=== PATIENT | female | born 1970 | race Two or more races ===

== ENCOUNTER 2018-07-28 10:45 | Outpatient (CLI) | payer OTHER ==
[~2018-07-28 10:45] MED LIST: CIPRO500 MG PO; FLAGYL500MG PO; INTESTINEX1 CAP PO; LEVSIN0.125 MG PO; PROTONIX40 MG PO; ZANTAC300 MG PO; ZOFRAN4 MG PO
== END 2018-07-28 11:08 | disposition home or self-care (01) ==
LOC: SONOGRAMA 10:45 → MAMO-SONO 10:45
DX: Z12.31 Encounter for screening mammogram for malignant neoplasm of breast (principal); N64.89 Other specified disorders of breast; E04.1 Nontoxic single thyroid nodule

== ENCOUNTER 2019-04-26 08:26 | Outpatient (CLI) | payer OTHER | END 2019-04-26 08:42 | disposition home or self-care (01) | LOC: TOM 08:26 | DX: R10.2 Pelvic and perineal pain (principal) ==

== ENCOUNTER 2019-06-22 08:17 | Outpatient (CLI) | payer OTHER | END 2019-06-22 08:29 | disposition home or self-care (01) | LOC: SONOGRAMA 08:17 → MAMO-SONO 08:45 | DX: D27.1 Benign neoplasm of left ovary (principal); N80.6 Endometriosis in cutaneous scar ==

== ENCOUNTER 2019-08-03 06:15 | Day surgery (SDC) | payer OTHER ==
[~2019-08-03 06:15] MED LIST changes: +SYNTH; +SYNTH PO; +SYNTHROID112 MCG PO
[2019-08-03] MEDS ORDERED: PERCOCET 5-3251 EACH PO (11:36)
== END 2019-08-03 13:55 | disposition home or self-care (01) ==
LOC: CIR.AMB 06:15
DX: D17.1 Benign lipomatous neoplasm of skin and subcutaneous tissue of trunk (principal)

== ENCOUNTER → 2019-11-30 | Outpatient (CLI) | payer OTHER ==
[~2019-11-30] MED LIST changes: +PERCOCET 5-3251 EACH PO
== END | disposition home or self-care (01) ==
LOC: TOM 08:27
DX: J32.4 Chronic pansinusitis (principal)

== ENCOUNTER 2019-12-15 11:28 | Outpatient (CLI) | payer OTHER ==
[~2019-12-15] VITALS: Ht 154.9 cm; Wt 52.2 kg
== END 2019-12-15 12:53 | disposition home or self-care (01) ==
LOC: OFIC 805 11:28
DX: H65.192 Other acute nonsuppurative otitis media, left ear (principal); H91.8X3 Other specified hearing loss, bilateral; J32.8 Other chronic sinusitis; R09.81 Nasal congestion

== ENCOUNTER 2020-01-17 08:57 | Outpatient (CLI) | payer OTHER ==
[~2020-01-17] VITALS: Ht 152.4 cm; Wt 52.2 kg
== END 2020-01-17 10:59 | disposition home or self-care (01) ==
LOC: OFIC 805 08:57
DX: J32.8 Other chronic sinusitis (principal); R09.81 Nasal congestion; H91.8X3 Other specified hearing loss, bilateral; H65.01 Acute serous otitis media, right ear